=== PATIENT | male | born 1960 | race Two or more races ===

== ENCOUNTER 2019-02-02 07:14 | Day surgery (SDC) | payer MEDICAID ==
[2019-01-25 15:56] LABS: BASOPHILS % (AUTO) 0.6 % (0-1); EOSINOPHILS # (AUTO) 0.1 X10'3 (0-0.9); EOSINOPHILS % (AUTO) 1.9 % (0-6); LYMPHOCYTES # (AUTO) 1.8 X10'3 (1.1-4.8); LYMPHOCYTES % (AUTO) 27.7 % (21-51); MEAN CORPUSCULAR HEMOGLOBIN 31.5 PG (27.0-31.0); MEAN CORPUSCULAR HGB CONC 35.1 g/dL (33.0-36.5); MEAN CORPUSCULAR VOLUME 89.7 FL (78-98); MEAN PLATELET VOLUME 7.5 FL (7.4-10.4); MONOCYTES # (AUTO) 0.7 X10'3 (0-0.9); MONOCYTES % (AUTO) 10.9 % (2-12); NEUTROPHILS # (AUTO) 3.9 X10'3 (1.8-7.7); NEUTROPHILS % (AUTO) 58.9 % (42-75); PRE OP HEMATOCRIT 43.6 % (42.0-52.0); PRE OP HEMOGLOBIN 15.3 g/dL (14.0-17.9); PRE OP PLATELET COUNT 200 X10'3 (140-440); RED BLOOD COUNT 4.86 X10'6 (4.70-6.10)
[2019-01-25 16:11] LABS: ALBUMIN 3.5 G/DL (3.4-5.0); ALBUMIN/GLOBULIN RATIO 0.9 (1.1-1.5); ALKALINE PHOSPHATASE 92 IU/L (46-116); BLOOD UREA NITROGEN 15 MG/DL (7-18); BUN/CREATININE RATIO 13.9 (5.4-32.0); CALCIUM 8.5 MG/DL (8.5-10.1); CHLORIDE 105 MMOL/L (99-107); CREATININE 1.08 MG/DL (0.60-1.10); PRE OP ALT 24 U/L (30-65); PRE OP ANION GAP 8 (8-16); PRE OP AST 15 U/L (10-37); PRE OP BILIRUB, TOTAL 0.4 MG/DL (0.0-1.0); PRE OP GLUCOSE 97 MG/DL (70-104); PRE OP POTASSIUM 4.1 MMOL/L (3.4-5.1); PRE OP SODIUM 141 MMOL/L (135-145); TOTAL PROTEIN 7.2 G/DL (6.4-8.2); eGFR 71 ML/MIN
[~2019-02-02] VITALS: Ht 182.9 cm; Wt 83.9 kg
[~2019-02-02 07:14] MED LIST: LEVO125T8 PO
[2019-02-02 07:20] VITALS: BP 133/89
[2019-02-02] MEDS ORDERED: LIDOcaine 0.5% (5mg/ml) 50ml vial ONE (07:50)
[2019-02-02] MEDS ORDERED: ringers solution, lacted 1,000 ML IV SCH ×2 (07:57→08:00)
[2019-02-02] MEDS ORDERED: cefazolin/dext.iso 2gm/100ml 100 ML IV ONE (08:00)
[2019-02-02] MEDS ORDERED: morphine 4 MG/ML inj SYRINge IV PRN ×2 (08:00)
[2019-02-02] MEDS ORDERED: ondansetron/PF 4mg/2ml inj IV PRN (08:00)
[2019-02-02] MEDS ORDERED: famotidine 20mg tablet PO ONE (08:00)
[2019-02-02] MEDS ORDERED: proCHLORperazine 10 MG/2 ml inj IV PRN (08:00)
[2019-02-02] MEDS ORDERED: meperidine/PF 25mg/ml syringe IV PRN ×3 (08:00)
[2019-02-02] MEDS ORDERED: BUPIVAcaine/PF 2.5mg/ml (0.25%) 10ml vial ONE (08:35)
[2019-02-02] MEDS ORDERED: BUPIVAcaine/PF 2.5mg/ml (0.25%) 10ml vial IJ ONE (08:41)
[2019-02-02] MEDS ORDERED: fentaNYL/PF 50MCG/1 ML 2ML syringe ONE (08:50)
[2019-02-02] MEDS ORDERED: midazolam 2 mg/2 ml injection ONE (08:50)
[2019-02-02] MEDS ORDERED: propofol inj 20 ML IV ONE (09:10)
[2019-02-02 09:35] VITALS: BP 134/90
--- NOTE | 2019-02-02 09:35 | NUR ---
ADMITTED TO PACU FROM OR ACCOMPANIED BY ANESTHESIA. INTIAL PHYSICAL ASSESSMENT DONE AND RECORDED. REPORT RECEIVED FROM ANESTHESIA.
[2019-02-02 09:45] VITALS: BP 129/86
[2019-02-02 09:55] VITALS: BP 128/84
[2019-02-02 10:05] VITALS: BP 132/88
[2019-02-02 10:15] VITALS: BP 132/84
--- NOTE | 2019-02-02 10:20 | NUR ---
DISCHARGE CRITERIA MET, DISCHARGE INSTRUCTIONS GIVEN, DEMONSTRATES VERBAL UNDERSTANDING. DISCHARGED HOME IN GOOD CONDITION.
== END 2019-02-02 10:20 | disposition home or self-care (01) ==
LOC: PAS 07:14
PROVIDERS: ATTEND Orthopaedic Surgery Hand Surgery
DX: M77.11 Lateral epicondylitis, right elbow (principal); E03.9 Hypothyroidism, unspecified; Z79.899 Other long term (current) drug therapy
CPT/HCPCS: 24358; 36415; 80053; 85025; 93005; A6222; J2001; J2250; J2704; J3010; J3490; A4215; A4565; A4618; A6449; J7120